=== PATIENT | female | born 1945 | race Caucasian/White ===

== ENCOUNTER → 2016-10-31 | Outpatient (CLI) | payer BC ==
[~2016-10-31] MED LIST: ALBUAER2 INH; ASPI81TA28 PO; ATV1 PO; CLR10 PO; COEN1CAP28 PO; ERGO1CAP35 PO; FELO5TAB PO; FLX10 PO; GLC500; INSU1INJ7 SC; LEVO175T3 PO; LOSA1TAB38 PO; MULT-506 PO; NVLGI SC; POLY150C4 PO; PRAV20TA PO; RXC5 PO
[2016-10-31 13:09] LABS: HEMATOCRIT 32.2 % (37-47); MEAN CELL VOLUME 86.3 fL (80-100); MEAN CORPUSCULAR HEMOGLOBIN 28.7 pg (25-34); MEAN CORPUSCULAR HGB CONC 33.2 g/dl (32-36); MEAN PLATELET VOLUME 10.6 fL (7.4-10.4); PLATELET COUNT 307 K/uL (130-400); RED BLOOD COUNT 3.73 M/uL (4.2-5.4)
[2016-10-31 13:24] LABS: BLOOD UREA NITROGEN 33 mg/dl (7-18); BUN/CREATININE RATIO 25.6 (10-20); CARBON DIOXIDE 20 mmol/L (21-32); CHLORIDE 106 mmol/L (98-107); GLUCOSE 161 mg/dl (70-99); PHOSPHORUS 3.2 mg/dl (2.5-4.9); POTASSIUM 4.7 mmol/L (3.5-5.1); SODIUM 137 mmol/L (136-145)
[2016-10-31 13:26] LABS: URINE APPEARANCE CLEAR (CLEAR); URINE BILIRUBIN NEG (NEG); URINE COLOR YELLOW; URINE EPITHELIAL CELL AUTO 0-5 /lpf (0-5); URINE NITRITE NEG (NEG); URINE SPECIFIC GRAVITY 1.008 (1.000-1.030); UROBILINOGEN NEG (NEG)
[2016-10-31 13:30] LABS: MANUAL MICROSCOPIC REQUIRED? NO; REVIEW REQ? NO
[2016-10-31 13:37] LABS: URINE PROTIEN/CREAT RATIO 0.2 (0-0.2); URINE TOTAL PROTEIN 6.6 mg/dl (0-11.9)
[2016-10-31 13:52] LABS: ESTIMATED AVERAGE GLUCOSE 154 mg/dl; HA1C FLAG Normal (Normal)
== END | disposition home or self-care (01) ==
LOC: C.LABMFLN 11:03
PROVIDERS: ATTEND Internal Medicine Nephrology
DX: I12.9 Hypertensive chronic kidney disease with stage 1 through stage 4 chronic kidney disease, or unspecified chronic kidney disease (principal); R80.9 Proteinuria, unspecified; N18.3 Chronic kidney disease, stage 3 (moderate); E55.9 Vitamin D deficiency, unspecified; E11.22 Type 2 diabetes mellitus with diabetic chronic kidney disease

== ENCOUNTER → 2017-05-08 | Outpatient (CLI) | payer BC ==
[2017-05-08 13:19] LABS: HEMATOCRIT 34.7 % (37-47); MEAN CELL VOLUME 90.6 fL (80-100); MEAN CORPUSCULAR HEMOGLOBIN 29.5 pg (25-34); MEAN CORPUSCULAR HGB CONC 32.6 g/dl (32-36); MEAN PLATELET VOLUME 10.8 fL (7.4-10.4); PLATELET COUNT 312 K/uL (130-400); RED BLOOD COUNT 3.83 M/uL (4.2-5.4); WHITE BLOOD COUNT 9.64 K/uL (4.8-10.8)
[2017-05-08 13:37] LABS: URINE APPEARANCE CLEAR (CLEAR); URINE BILIRUBIN NEG (NEG); URINE COLOR YELLOW; URINE EPITHELIAL CELL AUTO >30 /lpf (0-5); URINE NITRITE NEG (NEG); URINE SPECIFIC GRAVITY 1.023 (1.000-1.030); UROBILINOGEN NEG (NEG)
[2017-05-08 13:41] LABS: BLOOD UREA NITROGEN 28 mg/dl (7-18); BUN/CREATININE RATIO 23.2 (10-20); CALCIUM 9.7 mg/dl (8.5-10.1); CARBON DIOXIDE 27 mmol/L (21-32); CHLORIDE 108 mmol/L (98-107); GLUCOSE 140 mg/dl (70-99); PHOSPHORUS 3.5 mg/dl (2.5-4.9); POTASSIUM 4.8 mmol/L (3.5-5.1); SODIUM 140 mmol/L (136-145)
[2017-05-08 14:10] LABS: URINE PROTIEN/CREAT RATIO 0.1 (0-0.2); URINE TOTAL PROTEIN 14.4 mg/dl (0-11.9)
[2017-05-08 15:44] LABS: MANUAL MICROSCOPIC REQUIRED? NO; REVIEW REQ? NO
== END | disposition home or self-care (01) ==
LOC: C.LABMFLN 09:21
PROVIDERS: ATTEND Internal Medicine Nephrology
DX: I12.9 Hypertensive chronic kidney disease with stage 1 through stage 4 chronic kidney disease, or unspecified chronic kidney disease (principal); R80.9 Proteinuria, unspecified; N18.3 Chronic kidney disease, stage 3 (moderate); E55.9 Vitamin D deficiency, unspecified

== ENCOUNTER → 2017-05-15 | Outpatient (CLI) | payer BC ==
[2017-05-15 18:15] LABS: ALKALINE PHOSPHATASE 98 U/L (45-117); ALT/SGPT 44 U/L (12-78); AST/SGOT 30 U/L (15-37); CHOLESTEROL 146 mg/dl (0-200); CHOLESTEROL/HDL RATIO 2.6; HDL CHOLESTEROL 57 mg/dl; LDL CHOLESTEROL CALCULATED 61 mg/dl; TRIGLYCERIDES 140 mg/dl (0-150); VERY LOW DENSITY LIPOPROT CALC 28 mg/dl
[2017-05-15 18:49] LABS: ESTIMATED AVERAGE GLUCOSE 148 mg/dl; HA1C FLAG Normal (Normal)
== END | disposition home or self-care (01) ==
LOC: C.LABMFLN 11:47
PROVIDERS: ATTEND Family Medicine
DX: E78.5 Hyperlipidemia, unspecified (principal); E03.9 Hypothyroidism, unspecified; E11.9 Type 2 diabetes mellitus without complications

== ENCOUNTER → 2017-06-10 | Outpatient (CLI) | payer BC ==
--- NOTE | 2017-06-10 15:31 | MAMMOGRAPHY REPORT ---
BILATERAL DIGITAL SCREENING MAMMOGRAM WITH CAD: 06/10/2017 CLINICAL HISTORY: Routine screening. Patient has no complaints. TECHNIQUE: Bilateral CC, MLO and right XCCL views were obtained. Current study was also evaluated wi th a Computer Aided Detection (CAD) system. COMPARISON: Comparison is made to exams dated: 05/09/2016 mammogram - [facility] [place], mammogram, 05/20/2013 mammogram, 04/10/2012 mammogram, 08/24/2009 mammogram, and 07/28/2008 mamm ogram. BREAST COMPOSITION: There are scattered areas of fibroglandular density in both breasts. FINDINGS: There are mild vascular calcifications in the breasts. No suspicious mass, architectural d istortion or cluster of suspicious microcalcifications is seen. IMPRESSION: ACR BI-RADS CATEGORY 1: NEGATIVE There is no mammographic evidence of malignancy. A 1 year screening mammogram is recommended. The pa tient will receive written notification of the results. Approximately 10% of breast cancers are not detected with mammography. A negative mammographic report should not delay biopsy if a clinically suggestive mass is present. Juanis Ferrari M.D. ay/:06/10/2017 15:06:26 Plater Apprentice: Flora PACHECO(Catina)(Linda)(BD), [facility] letter sent: Normal 1/2 BI-RADS Code: ACR BI-RADS Category 1: Negative
== END | disposition home or self-care (01) ==
LOC: C.MAMM 11:44
PROVIDERS: ATTEND Family Medicine
DX: Z12.31 Encounter for screening mammogram for malignant neoplasm of breast (principal)

== ENCOUNTER → 2017-07-28 | Day surgery (SDC) | payer BC ==
[2017-07-21 10:09] VITALS: BMI 39.0
[~2017-07-28] VITALS: Ht 172.7 cm; Wt 115.5 kg
[~2017-07-28] MED LIST changes: -ALBUAER2 INH; +ATROPINE SULFATE 0.1 MG/ML 5ML SYR IV PRN; -ATV1 PO; +CYAN10005 PO; +CYCL10TA6 PO; -ERGO1CAP35 PO; +ERGO500011 PO; +EpHEDrine SULFATE INJ 50 MG/ML AMP IV PRN; +FELO10TA PO; -FELO5TAB PO; +FERR1TAB62 PO; -FLX10 PO; +GABA-112 PO; -GLC500; +INSDGI SC; +INSU100I SC; -INSU1INJ7 SC; +LIDOCAINE HCL 2% 2 ML VIAL (20MG/ML) ONE; +METF-384 PO; -NVLGI SC; -POLY150C4 PO; +PRAV10TA39 PO; -PRAV20TA PO; +PROPOFOL IV EMULSION 10 MG/ML 20 ML VIAL IV ONE; -RXC5 PO; +VNTHFA/IN INH
[2017-07-28 13:13] VITALS: Ht 172.7 cm; Wt 115.5 kg
--- NOTE | 2017-07-28 13:36 | Endo History and Physical ---
History & Physical Date of Service: Jul 28, 2017. Chief Complaint: hx polyps Referring Physician: Dr. Bender History of Present Illness For colonoscopy Past Medical History Diabetes, Arthritis, Asthma, Blood Dyscrasias, High Cholesterol, Hypertension, Thyroid Disease, Kidney Disease Past Surgical History Hx Cardiac Surgery: Yes (HEART CATH, NO STENTS) Hx Internal Defibrillator: No Hx Pacemaker: No Hx Abdominal Surgery: Yes (APPY) Hx of Implantable Prosthesis: No Hx Post-Op Nausea and Vomiting: No Hx Cancer Surgery: No Hx Thoracic Surgery: No Hx Orthopedic: Yes (LOW BACK SURGERY X2, CERVICAL DISC REPLACEMENT (FULL ROM), RT CTR) Hx Urinary Tract Surgery: Yes (BLADDER TACK AND VAGINAL SLING, LT/RT HAMMER TOE REPAIR) Family History Colon CA Social History Smoking Status: Never Smoker Hx Substance Use: No Hx Alcohol Use: No Allergies Coded Allergies: Cephalexin (Verified Allergy, Intermediate, RASH, 07/28/17) Latex1 -Allergic Contact Dermititis (Verified Allergy, Mild, RASH, ) Tetracycline (Verified Allergy, Mild, HIVES, 07/28/17) Clarithromycin (Verified Allergy, Unknown, RASH, 07/28/17) Penicillins (Verified Allergy, Unknown, HIVES, 07/28/17) NSAIDs (Verified Adverse Reaction, Unknown, Avoid secondary to CKD Stage III, 07/28/17) Especially Toradol per Dr Diaz Current Medications Reported Home Medications Medications Dose Route/Sig Max Daily Dose Days Date Category Dose Instructions Glucophage (Metformin Hcl) 1,000 Mg Tab 1,000 Mg PO BID 07/21/17 Reported Neurontin (Gabapentin) 100 Mg Cap 100 Mg PO TID PRN 07/21/17 Reported Humalog (Insulin Lispro (Human)) 100 Unit/Ml Inj 22 Units SC AC 07/21/17 Reported +PER SLIDING SCALE Lantus (Insulin Glargine) 100 Unit/Ml Inj 82 Units SC QPM 07/21/17 Reported Vitamin B-12 (Cyanocobalamin) 1,000 Mcg Tab 1,000 Mcg PO DAILY 07/21/17 Reported Vitamin D 40803 Unit (Ergocalciferol) 50,000 Unit Cap 1 Tab PO MONTHLY 07/21/17 Reported Ventolin Hfa (Albuterol) 200 Puffs/74738 Mcg Aers 2-4 Puffs INH Q6H PRN 07/21/17 Reported Ferrous Sulfate 325 Mg Tab 1 Tab PO DAILY 07/21/17 Reported Flexeril (Cyclobenzaprine Hcl) 10 Mg Tab 10 Mg PO TID PRN 07/21/17 Reported Pravastatin Sodium 10 Mg Tab 1 Tab PO HS 07/21/17 Reported Plendil Er (Felodipine) 10 Mg Tab 10 Mg PO QAM 07/21/17 Reported Multivitamin (Multivitamins) Tab 1 Tab PO DAILY 11/20/15 Reported Levothyroxine Sodium 175 Mcg Tab 1 Tab PO QAM 11/20/15 Reported Co Q10 (Coenzyme Q10) 50 Mg Cap 2 Cap PO QAM 11/20/15 Reported Aspirin Ec (Aspirin) 81 Mg Tab 81 Mg PO HS 11/20/15 Reported Cozaar (Losartan Potassium) 100 Mg Tab 100 Mg PO QAM 01/15/12 Reported Claritin (Loratadine) 10 Mg Tab 10 Mg PO QAM 09/05/06 Reported Vital Signs Weight (Kilograms): 115.45 Height (Feet): 5 Height (Inches): 8 Date Time Temp Pulse Resp B/P (MAP) Pulse Ox O2 Delivery O2 Flow Rate FiO2 07/28/17 13:20 36.5 100 20 183/78 (113) 97 Room Air Physical Exam General Appearance: + obese Respiratory/Chest: Respiratory effort: no dyspnea Cardiovascular: Heart Auscultation: RRR Abdomen: Inspection & Palpation: soft Assessment and Plan Hx of polyps for colonoscopy
--- NOTE | 2017-07-28 13:58 | Discharge Instructions ---
Endoscopy Patient Instructions Date / Procedure(s) Performed Jul 28, 2017. Colonoscopy Allergy Information Coded Allergies: Cephalexin (Verified Allergy, Intermediate, RASH, 07/28/17) Latex1 -Allergic Contact Dermititis (Verified Allergy, Mild, RASH, ) Tetracycline (Verified Allergy, Mild, HIVES, 07/28/17) Clarithromycin (Verified Allergy, Unknown, RASH, 07/28/17) Penicillins (Verified Allergy, Unknown, HIVES, 07/28/17) NSAIDs (Verified Adverse Reaction, Unknown, Avoid secondary to CKD Stage III, 07/28/17) Especially Toradol per Dr Diaz Discharge Date / Findings Jul 28, 2017. Normal colon Medication Instructions Stopped Medication(s): stopped everything except BP and thyroid pill. Restart Stopped Medication(s): resume meds Reported Home Medications Medications Dose Route/Sig Max Daily Dose Days Date Category Dose Instructions Glucophage (Metformin Hcl) 1,000 Mg Tab 1,000 Mg PO BID 07/21/17 Reported Neurontin (Gabapentin) 100 Mg Cap 100 Mg PO TID PRN 07/21/17 Reported Humalog (Insulin Lispro (Human)) 100 Unit/Ml Inj 22 Units SC AC 07/21/17 Reported +PER SLIDING SCALE Lantus (Insulin Glargine) 100 Unit/Ml Inj 82 Units SC QPM 07/21/17 Reported Vitamin B-12 (Cyanocobalamin) 1,000 Mcg Tab 1,000 Mcg PO DAILY 07/21/17 Reported Vitamin D 34407 Unit (Ergocalciferol) 50,000 Unit Cap 1 Tab PO MONTHLY 07/21/17 Reported Ventolin Hfa (Albuterol) 200 Puffs/06795 Mcg Aers 2-4 Puffs INH Q6H PRN 07/21/17 Reported Ferrous Sulfate 325 Mg Tab 1 Tab PO DAILY 07/21/17 Reported Flexeril (Cyclobenzaprine Hcl) 10 Mg Tab 10 Mg PO TID PRN 07/21/17 Reported Pravastatin Sodium 10 Mg Tab 1 Tab PO HS 07/21/17 Reported Plendil Er (Felodipine) 10 Mg Tab 10 Mg PO QAM 07/21/17 Reported Multivitamin (Multivitamins) Tab 1 Tab PO DAILY 11/20/15 Reported Levothyroxine Sodium 175 Mcg Tab 1 Tab PO QAM 11/20/15 Reported Co Q10 (Coenzyme Q10) 50 Mg Cap 2 Cap PO QAM 11/20/15 Reported Aspirin Ec (Aspirin) 81 Mg Tab 81 Mg PO HS 11/20/15 Reported Cozaar (Losartan Potassium) 100 Mg Tab 100 Mg PO QAM 01/15/12 Reported Claritin (Loratadine) 10 Mg Tab 10 Mg PO QAM 09/05/06 Reported Provider Instructions Activity Restrictions - No exercising or heavy lifting for 24 hours. - Do not drink alcohol the day of the procedure. - Do not drive a car or operate machinery until the day after the procedure. - Do not make any important decisions or sign important papers in 24 hours after the procedure. Following Day: - Return to full activity which may include returning to work/school. Diet Start your diet with liquids and light foods (jello, soup, juice, toast). Then eat your usual diet if not nauseated. Treatment For Common After Affects For mild abdominal pain, bloating, or excessive gas: - Rest - Eat lightly - Lie on right side Follow-Up Information Follow-up with Dr. Bender as scheduled Anesthesia Information What You Should Know You have had a procedure that required some medicine to reduce anxiety and discomfort. This treatment is called moderate sedation. After receiving the treatment, you may be sleepy, but you will be able to breathe on your own. The effects of the treatment may last for several hours. Follow these instructions along with Activity/Diet recommendations noted above: * Do NOT do anything where dizziness or clumsiness would be dangerous. * Rest quietly at home today, then you can be up and about tomorrow. * Have a responsible person stay with you the rest of today. * You may have had an I.V. today. If so, you may take the dressing off later today. Recommendations Call your doctor if: * Trouble breathing * Continuous vomiting for more than 24 hours * Temperature above 101 degrees * Severe abdominal pain or bloating * Pain not relieved by pain medicine ordered * There is increased drainage or redness from any incision * A large amount of rectal bleeding greater than 2-3 tablespoons. (If you had a polyp/s removed or have hemorrhoids, a small amount of blood - from the rectum is to be expected.) * You have any unanswered questions or concerns. IN THE EVENT OF A SERIOUS EMERGENCY, GO TO THE NEAREST EMERGENCY ROOM Your discharge instructions were prepared by provider Ranjit Apple. Patient Instructions Signature Page Arely Jaquez Patient (or Guardian) Signature/Date: I have read and understand the instructions given to me by my caregivers. Caregiver/RN/Doctor Signature/Date: The above-named patient and/or guardian has received patient instructions on this date. + Original Patient Signature Page (only) stays with chart. Please make copy for patient.
--- NOTE | 2017-07-28 14:00 | GI REPORT ---
Procedure Date: 07/28/2017 1:37 PM Procedure: Colonoscopy Indications: Personal history of colonic polyps Medicines: Propofol total dose 200 mg IV, Lidocaine 40 mg IV Complications: No immediate complications. Estimated Blood Loss: Estimated blood loss: none. Procedure: Pre-Anesthesia Assessment: - Prior to the procedure, a History and Physical was performed, and patient medications, allergies and sensitivities were reviewed. The patient's tolerance of previous anesthesia was reviewed. - The risks and benefits of the procedure and the sedation options and risks were discussed with the patient. All questions were answered and informed consent was obtained. After I obtained informed consent, the scope was passed under direct vision. Throughout the procedure, the patient's blood pressure, pulse, and oxygen saturations were monitored continuously. The scope was introduced through the anus and advanced to the cecum, identified by appendiceal orifice and ileocecal valve. The colonoscopy was performed without difficulty. The patient tolerated the procedure well. The quality of the bowel preparation was excellent. Findings: The entire examined colon appeared normal. Impression: - The entire examined colon is normal. - No specimens collected. Recommendation: - Discharge patient to home (ambulatory). - Continue present medications. - Repeat colonoscopy in 5 years for surveillance. - Return to primary care physician [place]. Ranjit Apple M.D. Ranjit Apple MD 07/28/2017 2:00:11 PM This report has been signed electronically. Note Initiated On: 07/28/2017 1:37 PM I attest to the content of the Intraoperative Record and orders documented therein, exceptions below
--- NOTE | 2017-07-28 14:07 | Anesthesiology Progress Note ---
Anesthesia Post Op Note Date & Time Jul 28, 2017 at 14:07 Vital Signs Pain Intensity: 0 Vital Signs Past 12 Hours Date Time Temp Pulse Resp B/P (MAP) Pulse Ox O2 Delivery O2 Flow Rate FiO2 07/28/17 14:01 82 16 137/63 (87) 94 Room Air 07/28/17 13:20 36.5 100 20 183/78 (113) 97 Room Air Notes Mental Status: alert / awake / arousable, participated in evaluation Pt Amnestic to Procedure: Yes Nausea / Vomiting: adequately controlled Pain: adequately controlled Airway Patency, RR, SpO2: stable & adequate BP & HR: stable & adequate Hydration State: stable & adequate Anesthetic Complications: no major complications apparent
[2017-07-28 14:30] VITALS: BP 154/73; PULSE 78; O2SAT 95
== END | disposition home or self-care (01) ==
LOC: C.GI 12:49
PROVIDERS: ATTEND Internal Medicine Gastroenterology
DX: Z86.010 Personal history of colon polyps (principal); Z80.0 Family history of malignant neoplasm of digestive organs; E78.5 Hyperlipidemia, unspecified; E03.9 Hypothyroidism, unspecified; E11.9 Type 2 diabetes mellitus without complications; Z79.4 Long term (current) use of insulin; N28.9 Disorder of kidney and ureter, unspecified; Z79.899 Other long term (current) drug therapy

== ENCOUNTER → 2017-11-14 | Outpatient (CLI) | payer BC ==
[~2017-11-14] MED LIST changes: -ATROPINE SULFATE 0.1 MG/ML 5ML SYR IV PRN; -EpHEDrine SULFATE INJ 50 MG/ML AMP IV PRN; -LIDOCAINE HCL 2% 2 ML VIAL (20MG/ML) ONE; -PROPOFOL IV EMULSION 10 MG/ML 20 ML VIAL IV ONE
[2017-11-14 12:50] LABS: HEMATOCRIT 34.2 % (37-47); HEMOGLOBIN 11.2 g/dL (12.0-16.0); MEAN CELL VOLUME 90.2 fL (80-100); MEAN CORPUSCULAR HEMOGLOBIN 29.6 pg (25-34); MEAN CORPUSCULAR HGB CONC 32.7 g/dl (32-36); MEAN PLATELET VOLUME 11.4 fL (7.4-10.4); PLATELET COUNT 300 K/uL (130-400); RED CELL DISTRIBUTION WIDTH CV 13.8 % (11.5-14.5); RED CELL DISTRIBUTION WIDTH SD 45.7 fL (36.4-46.3); WHITE BLOOD COUNT 11.06 K/uL (4.8-10.8)
[2017-11-14 12:57] LABS: ALBUMIN 3.6 gm/dl (3.4-5.0); BLOOD UREA NITROGEN 35 mg/dl (7-18); CALCIUM 9.5 mg/dl (8.5-10.1); CARBON DIOXIDE 22 mmol/L (21-32); CREATININE 1.17 mg/dl (0.60-1.20); GLUCOSE 81 mg/dl (70-99); POTASSIUM 4.3 mmol/L (3.5-5.1); SODIUM 138 mmol/L (136-145)
[2017-11-14 12:58] LABS: HEMOGLOBIN A1C 6.9 % (4.5-5.6); PHOSPHORUS 3.7 mg/dl (2.5-4.9)
== END | disposition home or self-care (01) ==
LOC: C.LABMFLN 08:45
PROVIDERS: ATTEND Internal Medicine Nephrology
DX: E11.9 Type 2 diabetes mellitus without complications (principal); I10 Essential (primary) hypertension; R80.9 Proteinuria, unspecified; N18.3 Chronic kidney disease, stage 3 (moderate); E55.9 Vitamin D deficiency, unspecified

== ENCOUNTER 2024-01-13 06:51 | Observation (INO) ==
--- NOTE | 2024-01-12 09:03 | Anesthesiology Consultation ---
Date of Service January 12, 2024 Assessment & Plan (1) Encounter for pre-operative examination: - Infectious disease screening: Per assessment on 01/08/24: No known infectious disease contacts or current infectious disease symptoms. No noted recent Covid positive test result. - PCP visit (11/06/23): "Umbilical hernia.. Will place referral for general surgery.. CKD (chronic kidney disease), stage III.. Avoid nephrotoxic medications.. Hypertension.. Well controlled.. Continue medication as prescribed.. Statin myopathy.. Unable to tolerate statin therapy.. Dermatitis.. 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 Use hydrocortisone cream BID to rash." 6 month f/u recommended. - Check BSG AM DOS - Preop testing: Most recent potassium borderline elevated at 5.2 on 01/09/24 labs. Will update potassium level DOS. Chart Review Chart Review: Acceptable Risk for Surgery and Patient NOT seen in Pre Admission Testing History Surgery Operation Date: 01/13/24 08:40 Proposed Procedures p Oepn Incarcerated Umbilical Hernia Repair, Possible Mesh - Yovany Mishra DO Height/Weight Height: 5 ft 7 in Weight: 110.223 kg Allergies Allergy/AdvReac Type Severity Reaction Status Date / Time adhesive Allergy Intermediate Redness Verified 01/12/24 08:53 cephalexin Allergy Intermediate Rash Verified 01/12/24 08:53 clarithromycin Allergy Intermediate Rash Verified 01/12/24 08:53 Penicillins Allergy Intermediate Hives Verified 01/12/24 08:53 tetracycline Allergy Intermediate Hives Verified 01/12/24 08:53 latex Allergy Mild Rash Verified 01/12/24 08:53 levofloxacin Allergy Unknown Unknown Verified 01/12/24 08:53 Tetracyclines Allergy Unknown Unknown Verified 01/12/24 08:53 oxycodone AdvReac Intermediate "Spaced Verified 01/12/24 08:53 out" [id number] Reductase AdvReac Intermediate Muscle Pain Verified 01/08/24 09:38 Inhibitor [[id number]-[id number] Reductase Inhibitor] NSAIDS (Non-Steroidal AdvReac Mild Avoid Verified 01/08/24 09:38 Anti-Inflamma secondary to CKD Stage III Medications Home Medications Medication Instructions Recorded Confirmed Last Taken coenzyme Q10 100 mg capsule 100 mg PO QAM 06/23/18 01/08/24 11/25/22 (CoQ-10) cyanocobalamin (vitamin B-12) 1,000 mcg PO QAM 06/23/18 01/08/24 11/25/22 1,000 mcg tablet (Vitamin B-12) aspirin 81 mg tablet 81 mg PO HS 02/16/19 01/08/24 11/22/22 multivitamin 1 tab PO QPM #90 tabs 02/22/19 01/08/24 11/25/22 diabetic shoes #1 ea 04/12/20 12/15/23 Unknown latanoprost 0.005 % eye drops 1 drp ophthalmic (eye) DAILY #2.5 03/22/22 01/08/24 11/25/22 mL iron polysacch cplx 150 mg 1 cap PO QAM 11/22/22 01/08/24 11/25/22 iron-vit B12 25 mcg-folic acid 1 mg capsule (Ferrex) loratadine 10 mg tablet 10 mg PO QAM 11/22/22 01/08/24 11/25/22 vitamin B complex (B 1 tab PO QAM 11/22/22 01/08/24 11/25/22 Complex-Vitamin B12 tablet) felodipine 10 mg tablet,extended 10 mg PO QAM #90 tabs 12/24/22 01/08/24 Unknown release 24 hr insulin aspart U-100 100 unit/mL 25 unit (0.25 mL) subcut TID #70 mL 02/18/23 01/08/24 Unknown subcutaneous solution (Novolog U-100 Insulin aspart) blood sugar diagnostic #400 ea 03/05/23 12/15/23 Unknown Wheeled Walker #1 ea 04/04/23 12/15/23 Unknown losartan 100 mg tablet 100 mg PO QAM #90 tabs 06/09/23 01/08/24 Unknown flash glucose scanning reader #1 ea 07/16/23 12/15/23 Unknown (FreeStyle Bernabe 2 [place]) flash glucose sensor (FreeStyle #1 ea 07/16/23 12/15/23 Unknown Bernabe 2 Sensor kit) ergocalciferol (vitamin D2) 1,250 50,000 unit PO MONTHLY #3 caps 09/03/23 01/08/24 Unknown mcg (50,000 unit) capsule (Vitamin D2) duloxetine 60 mg capsule,delayed 60 mg PO QAM #90 caps 09/09/23 01/08/24 Unknown release levothyroxine 137 mcg tablet 137 mcg PO QAM #90 tabs 10/08/23 01/08/24 Unknown (Synthroid) insulin glargine 100 unit/mL (3 84 unit (0.84 mL) subcut QPM #45 mL 01/05/24 01/08/24 Unknown mL) subcutaneous pen (Lantus Solostar U-100 Insulin) Past Medical History Medical History Allergic rhinitis Anemia Asthma CKD (chronic kidney disease), stage III Diabetic peripheral neuropathy Foot drop, left Glaucoma History of CHF (congestive heart failure) Hx of colonic polyp Hyperlipidemia Hypertension Hypothyroidism Incarcerated umbilical hernia Insulin dependent diabetes mellitus Lumbar disc disease Osteoarthritis Proteinuria Stenosis, cervical spine Past Family History Family History Sister Colorectal cancer Brother Diabetes mellitus, type 2 Sister Diabetes mellitus, type 2 Mother Diabetes mellitus, type 2 Aunt Breast cancer Father Coronary heart disease Myocardial infarction Other No family history of adverse response to anesthesia Denies family history of Ovarian cancer Prostate cancer Past Surgical History Surgical History History of appendectomy History of back surgery x3 (with fusion) History of bladder surgery Bladder tack, vaginal sling History of carpal tunnel release Right History of esophagogastroduodenoscopy (EGD) History of open reduction and internal fixation (ORIF) procedure Left wrist History of postoperative nausea and vomiting x1 History of tonsillectomy History of tooth extraction History of total knee replacement Left Hx of bilateral cataract extraction Hx of cervical discectomy ROM limitations Hx of colonoscopy with polypectomy Hx of hammer toe correction R/L Hx of nasal polypectomy S/P cardiac cath ~2003- no stents Social History Smoking Status: Never smoker Do You Dip or Chew Tobacco: No Hx Alcohol Use: No Hx Substance Use: No substance use type: does not use Lab Results Anesthesia Preop Results Results Anesthesia Widget: WBC 10.83 K/ul (4.8-10.8) H 01/09/24 Hgb 10.9 g/dl (12.0-16.0) L 01/09/24 Hct 35.3 % (37.0-47.0) L 01/09/24 Plt 346 K/uL (130-400) 01/09/24 Na 139 mmol/L (136-145) 01/09/24 K 5.2 mmol/L (3.5-5.1) H 01/09/24 Cl 107 mmol/L (98-107) 01/09/24 CO2 24 mmol/L (21-32) 01/09/24 BUN 27 mg/dl (6-23) H 01/09/24 Creat 1.24 mg/dl (0.6-1.2) H 01/09/24 Glucose Level 112 mg/dl (70-99(Fasting)) H 01/09/24 Testing Laboratory Results Chronic anemia stable* Electrocardiogram Date: 12/15/23 SR at 80bpm. "Normal ECG" Echocardiogram Date: 08/11/18 EF 65-70%. No RWMA. Mild cLVH. No significant valvular disease. Mild to moderate pulmonary HTN. Estimated RVSP 45-53mmhg.
[2024-01-13] MEDS ORDERED: MIDAZOLAM HCL 1 MG/ML 2ML VIAL ONE (07:29)
[2024-01-13] MEDS ORDERED: fentaNYL citrate PF 100 MCG/2 ML VIAL ONE (07:30)
[2024-01-13] MEDS: DEXTROSE 50% 50 ML SYRINGE IV ONE (07:49)
[2024-01-13] MEDS: LR 15ML/HR IV SCH (07:50)
--- NOTE | 2024-01-13 07:53 | History & Physical Bridge Note ---
Date of Service January 13, 2024 History & Physical Bridge Note I have examined the patient, reviewed the History & Physical and in the interval since the performance of the History & Physical I have noted the following changes of clinical significance: no changes noted
[2024-01-13] MEDS ORDERED: ePHEDrine sulfate 50 MG/ML AMP IV PRN (07:54)
[2024-01-13] MEDS ORDERED: PROMETHAZINE HCL 6.25 MG in SODIUM CHLORIDE 0.9% 50 ML IV PRN (07:54)
[2024-01-13] MEDS ORDERED: ATROPINE SULFATE 0.1 MG/ML 10ML SYR IV PRN (07:54)
[2024-01-13] MEDS: LACTATED RINGER'S 1,000 ML IV SCH ×2 (07:54→22:49)
[2024-01-13] MEDS ORDERED: HYDROmorphone INJ 2 MG/ML SYR/VIAL IV PRN (07:54)
[2024-01-13] MEDS ORDERED: PROPOFOL IV EMULSION 10 MG/ML 20 ML VIAL IV ONE (08:05)
[2024-01-13] MEDS ORDERED: ONDANSETRON INJ 2 MG/ML 2 ML VIAL ONE (08:05)
[2024-01-13] MEDS ORDERED: ROCURONIUM BROMIDE 10 MG/ML 5 ML VIAL IV ONE (08:05)
[2024-01-13] MEDS ORDERED: LIDOCAINE 2% 2 ML VIAL/AMP(20MG/ML) INFIL ONE (08:05)
[2024-01-13] MEDS: CLINDA 900 MG **Premixed Bag IV SCH (08:14)
[2024-01-13] MEDS ORDERED: DEXAMETHASONE SOD INJ 4 MG/ML VIAL ONE ×2 (08:29)
[2024-01-13] MEDS ORDERED: DROPERIDOL 5 MG/2 ML VIAL ONE (08:30)
[2024-01-13] MEDS ORDERED: ePHEDrine sulfate 50 MG/5 ML SYR ONE (08:39)
[2024-01-13] MEDS ORDERED: MoRPHine SULFATE 2 MG/ML CARP IV PRN (08:55)
[2024-01-13] MEDS ORDERED: MoRPHine SULFATE 4 MG/ML 1 ML CARP\\VIAL IV PRN (08:55)
[2024-01-13] MEDS ORDERED: ONDANSETRON INJ 2 MG/ML 2 ML VIAL IV PRN (08:55)
[2024-01-13] MEDS ORDERED: SUGAMMADEX SODIUM 200 MG/2 ML VIAL IV ONE (09:12)
[2024-01-13] MEDS: BUPIVACAINE/EPINEPHRINE 0.25% 1:200,000 30 ML VIAL ONE (09:17)
[2024-01-13] MEDS ORDERED: traMADol HCL 50 MG TABLET PO PRN (09:23)
--- NOTE | 2024-01-13 09:27 | Post Operative Brief Note ---
PG Immediate Post Op with CF Date of Surgery January 13, 2024 Pre & Post Diagnosis Operation Date: 01/13/24 08:40 Pre-Op Diagnosis: Incarcerated Umbilical Hernia Post-Op Diagnosis: Incarcerated Umbilical Hernia containing omentum I identified the patient and participated in the time-out.: Yes Procedure Operation Date: 01/13/24 08:40 Actual Procedures p Open Incarcerated Umbilical Hernia Repair with Mesh, partial omentectomy(Not Applicable) - Yovany Mishra DO Surgeon Yovany Mishra DO Director Of Hospitality Janine Wood PA-C Estimated Blood Loss 5 Findings See Below 3.2cm umbilical hernia with incarcerated omentum Specimens Specimen Description: A. Hernia Sac and Contents Anesthesia Type General Complications none Disposition Disposition: Recovery Room
--- NOTE | 2024-01-13 09:34 | Operative Report ---
PG Post Operative Report Pre & Post Diagnosis Operation Date: 01/13/24 08:40 Pre-Op Diagnosis: Incarcerated Umbilical Hernia Post-Op Diagnosis: Incarcerated Umbilical Hernia containing omentum I identified the patient and participated in the time-out.: Yes Procedure Operation Date: 01/13/24 08:40 Actual Procedures p Open Incarcerated Umbilical Hernia Repair with Mesh, partial omentectomy (Not Applicable) - Yovany Mishra DO Surgeon Yovany Mishra DO Marketing Professor Janine Wood PA-C Estimated Blood Loss 5 Findings See Below 3.2cm incarcerated umbilical hernia containing omentum Specimens Hernia sac and contents to pathology Drains None Anesthesia Type General Complications none Disposition Disposition: Recovery Room Indications 78 yo female with incarcerated umbilical hernia Description of Procedure The patient was brought to the OR and placed in the supine position with both arms abducted. At this time she underwent general endotracheal anesthesia without any problems. She was given appropriate pre-operative antibiotics. His abdomen was prepped and draped in the usual sterile fashion. Timeout was called. The procedure was verified as Open umbilical hernia repair, possible mesh. Surgical, anesthesia and nursing teams agreed and the procedure was begun. After injection of 0.25% Marcaine with epinephrine, a infraumbilical curvilinear incision was made using a #15 blade scalpel. This was carried down to the fascia using electrocautery. The umbilical stalk was then encircled using a Sarah clamp. The hernia sac was then dissected off of the umbilical skin using blunt and sharp dissection. The hernia sac was entered due to being unable to reduce the contents. This contained viable omentum. The hernia sac was removed. The incarcerated omentum was resected using the Ligasure device and passed off as specimen. I was able to then reduce the remaining contents with ease. At this point the defect was apparent and measured 3.2cm. A circular Ventralex mesh was then placed in an underlay fashion and sutured the fascia using simple interrupted 2-0 PDS. The defect overlying the mesh was then closed using a running 0-PDS suture. The wound was then irrigated until clear. Hemostasis was achieved using electrocautery. Hemostasis was complete. The umbilicus was then tacked down to the fascia using 3-0 Vicryl. 3-0 Vicryl was used to close the deep dermal layer and 4-0 Monocryl was used to close the skin in a running subcuticular fashion. Sterile dressing was applied. All needle and sponge counts were correct x 2. At this point the patient was awakened from anesthesia, extubated and transported to PACU in stable condition. The physician executive assistant was present and scrubbed for the entire case. She was essential in positioning, prepping and draping the patient, retraction and exposure, closure of the incision and placement of the dressing. I attest to the content of the Intraoperative Record and any orders documented therein. Any exceptions are noted below.
[2024-01-13] MEDS: traMADol HCL 50 MG TABLET PO PRN (10:49)
--- NOTE | 2024-01-13 10:52 | Anesthesiology Progress Note ---
Date of Service January 13, 2024 Anesthesia Post Procedure Vital Signs Vital Signs: Temp Pulse Pulse Resp BP Pulse Ox O2 Del Method 01/13/24 10:12 36.5 C 74 16 165/64 H 92 Nasal Cannula 01/13/24 10:05 36.3 C L 77 12 145/76 H 93 Nasal Cannula 01/13/24 09:55 74 12 157/63 H 93 Oxymask 01/13/24 09:45 73 12 159/95 H 94 Oxymask 01/13/24 09:35 36.1 C L 71 20 158/57 H 93 Oxymask 01/13/24 07:28 36.6 C 90 22 162/64 H 93 Room Air O2 Flow Rate 01/13/24 10:12 2 01/13/24 10:05 2 01/13/24 09:55 6 01/13/24 09:45 8 01/13/24 09:35 10 01/13/24 07:28 Transfer of Care Handoff Completed per policy Notes Mental Status: alert / awake / arousable and participated in evaluation Nausea / Vomiting: adequately controlled Pain: adequately controlled Airway Patency, RR, SpO2: stable & adequate BP & HR: stable & adequate Hydration State: stable & adequate Anesthetic Complications: no major complications apparent and Pt Satisfied with anesthetic care
[2024-01-13] MEDS: ALBUT/IPRATROP 3MG/0.5MG NEB 3 ML VIAL NEB STA (12:06)
--- NOTE | 2024-01-13 13:24 | XRay Report ---
XR chest 1V portable CLINICAL HISTORY: Pt with low post-op O2 sat COMPARISON STUDY: Chest radiograph August 09, 2018. Chest CT August 10, 2018. FINDINGS: Postoperative findings within the spine are incidentally noted. There is no pneumothorax or pleural effusion. There is cardiomegaly without evidence for pulmonary edema. Possible opacity withi n the medial right lung base. Left lung is clear. IMPRESSION: 1. Possible opacity within the medial right lung base. This could reflect atelectasis or a small foc us of pneumonia. 2. Cardiomegaly without evidence for pulmonary edema. ACT 112: Negative or not required by law. Electronically signed by: Dusty Paulino M.D. 01/13/2024 1:21 PM
--- NOTE | 2024-01-13 14:50 | Hospitalist Consultation ---
Date of Consultation January 13, 2024 Assessment & Plan (1) Incarcerated umbilical hernia: S/p open incarcerated umbilical hernia repair on 01/[address] Mishra Perioperative antibiotics, pain control, fluids, and DVT PPx per the primary team (2) Hypoxia: Patient had difficulty maintaining her SpO2 levels following anesthesia, and hospital medicine was consulted for low O2 saturation on RA CXR postop revealed opacity in the medial right lung base which could reflect atelectasis or small focus of pneumonia; likely atelectasis Patient does not use supplemental oxygen at home or CPAP at night On RA, she drops to around 90% SpO2 Clinically, denies pleuritic CP, SOB, or lightheadedness This may be a prolonged hypoxia following anesthesia; will continue to monitor Continuous pulse oximetry Titrate pulse ox as needed to maintain SpO2 >94% (3) Diabetes mellitus: Pharmacy glycemic consult in place Pharmacy reached out regarding elevated glucose levels at 398mg/dL Will obtain BMP to check potassium prior to giving regular insulin Added on a.m. CBC, BMP; we will follow (4) ANTWON (acute kidney injury): BUN 47, creatinine 1.84 (baseline 1.24), EGFR 26.2 Avoid nephrotoxic agents for possible Hold a.m. losartan (5) Hyperkalemia: Elevated K 6.3 on repeat BMP; unclear etiology (K 4.7 on arrival), ?secondary to anesthesia Calcium gluconate 1000 mg IV ordered Spoke to pharmacy who will give regular insulin 5u Trend BMP q4h x 2 EKG ordered, pending Patient will require transfer to telemetry unit (6) Hyperlipidemia: (7) Hypertension: (8) CHF (congestive heart failure): (9) Asthma: Plan Agree with current medical management. Will continue to monitor patient's SpO2. Thank you for allowing us to participate in the care of this patient; please reach out with any questions or concerns. We will continue to follow. Supervising Physician Co-Signing Physician Notes I personally saw and examined the patient. I independently reviewed the labs, EKG, imaging, problem list, medication list, past medical history and family history. I verified all thompson points and agree with Roddy Miller PA-C with the following exceptions and/or additions: 78 year old female post op hypoxia POD#0 s/p Open Incarcerated Umbilical Hernia Repair with Mesh. No shortness of breath. Notes baseline daytime sleepiness. O/E HS RRR, no murmurs, Chest CTAB, Abdo generalized tenderness A/P Post operative hypoxia - suspect she has undiagnosed obstructive sleep apnea +/- obesity hypoventilation, declines CPAP overnight. Continue incentive spirometry. Hyperkalemia with elevated Cr - suspect from worse renal function with taking her losartan this morning, hold losartan, insulin IV overnight, consider Lokelma is ongoing History of Present Illness Reason for Consultation: Medical Management Requesting Physician: Yovany Mishra DO Attending Physician: Yovany Mishra DO History of Present Illness Arely is a 78-year-old female with PMH of CHF, asthma, hypothyroidism, CKD stage III, HLD, HTN, diabetes mellitus, and B12/folate deficiency. She presented for an open incarcerated umbilical hernia repair with mesh with Dr. Yovany Mishra on 01/13/2024. Per review of operative note, EBL was listed as 5 cc, general anesthesia was used, and there were no reported intraoperative complications. Per review of patient vitals, she has been mildly hypertensive postop, and her oxygen saturations have been dropping to around 90% SpO2 on RA. Patient reports 3/10 dull, constant umbilical pain at time of consult. No radiation. She reports her pain is well-managed with current pain regimen. She has no new complaints at this time. Patient does not feel short of breath or lightheaded. No supplemental oxygen use at home. She has never had a CPAP before. She has been eating and drinking well since her surgery. She also reports she has been up to use the bathroom without difficulty. She denies smoking or tobacco use. No personal history of COPD. She only took her losartan, duloxetine, and levothyroxine this morning (as instructed). ROS: Patient endorses mild abdominal pain around the umbilicus, and sore throat. Patient denies fever, chills, sweating, dizziness, lightheadedness, changes in vision, headache, chest pain, chest palpitations, pleuritic CP, cough, SOB, N/V/D, changes in urinary or bowel habits, or numbness/tingling in the arms or legs. Allergies Allergy/AdvReac Type Severity Reaction Status Date / Time adhesive Allergy Intermediate Redness Verified 01/13/24 07:08 cephalexin Allergy Intermediate Rash Verified 01/13/24 07:08 clarithromycin Allergy Intermediate Rash Verified 01/13/24 07:08 Penicillins Allergy Intermediate Hives Verified 01/13/24 07:08 tetracycline Allergy Intermediate Hives Verified 01/13/24 07:08 latex Allergy Mild Rash Verified 01/13/24 07:08 levofloxacin Allergy Unknown Unknown Verified 01/13/24 07:08 Tetracyclines Allergy Unknown Unknown Verified 01/13/24 07:08 oxycodone AdvReac Intermediate "Spaced Verified 01/13/24 07:08 out" Jkgeraq-WUX-MwO Reductase AdvReac Intermediate Muscle Pain Verified 01/13/24 07:08 Inhibitor [Plfxgkv-Qde-Lrc Reductase Inhibitor] NSAIDS (Non-Steroidal AdvReac Mild Avoid Verified 01/13/24 07:08 Anti-Inflamma secondary to CKD Stage III Home Medications Medication Instructions Recorded Confirmed Type coenzyme Q10 100 mg capsule 100 mg PO QAM 06/23/18 01/13/24 History (CoQ-10) cyanocobalamin (vitamin B-12) 1,000 mcg PO QAM 06/23/18 01/13/24 History 1,000 mcg tablet (Vitamin B-12) aspirin 81 mg tablet 81 mg PO HS 02/16/19 01/13/24 History multivitamin 1 tab PO QPM #90 tabs 02/22/19 01/13/24 Rx diabetic shoes #1 ea 04/12/20 12/15/23 Rx latanoprost 0.005 % eye drops 1 drp ophthalmic (eye) DAILY #2.5 03/22/22 01/13/24 Rx mL iron polysacch cplx 150 mg 1 cap PO QAM 11/22/22 01/13/24 History iron-vit B12 25 mcg-folic acid 1 mg capsule (Ferrex) loratadine 10 mg tablet 10 mg PO QAM 11/22/22 01/13/24 History vitamin B complex (B 1 tab PO QAM 11/22/22 01/13/24 History Complex-Vitamin B12 tablet) felodipine 10 mg tablet,extended 10 mg PO QAM #90 tabs 12/24/22 01/13/24 Rx release 24 hr insulin aspart U-100 100 unit/mL 25 unit (0.25 mL) subcut TID #70 mL 02/18/23 01/13/24 Rx subcutaneous solution (Novolog U-100 Insulin aspart) blood sugar diagnostic #400 ea 03/05/23 12/15/23 Rx Wheeled Walker #1 ea 04/04/23 12/15/23 Rx losartan 100 mg tablet 100 mg PO QAM #90 tabs 06/09/23 01/13/24 Rx flash glucose scanning reader #1 ea 07/16/23 12/15/23 Rx (FreeStyle Bernabe 2 [place]) flash glucose sensor (FreeStyle #1 ea 07/16/23 12/15/23 Rx Bernabe 2 Sensor kit) ergocalciferol (vitamin D2) 1,250 50,000 unit PO MONTHLY #3 caps 09/03/23 01/13/24 Rx mcg (50,000 unit) capsule (Vitamin D2) duloxetine 60 mg capsule,delayed 60 mg PO QAM #90 caps 09/09/23 01/13/24 Rx release levothyroxine 137 mcg tablet 137 mcg PO QAM #90 tabs 10/08/23 01/13/24 Rx (Synthroid) insulin glargine 100 unit/mL (3 84 unit (0.84 mL) subcut QPM #45 mL 01/05/24 01/13/24 Rx mL) subcutaneous pen (Lantus Solostar U-100 Insulin) tramadol 50 mg tablet 50 mg PO Q6H #14 tabs 01/13/24 Rx Patient History Medical History Allergic rhinitis Anemia Asthma CKD (chronic kidney disease), stage III Diabetic peripheral neuropathy Foot drop, left Glaucoma History of CHF (congestive heart failure) Hx of colonic polyp Hyperlipidemia Hypertension Hypothyroidism Incarcerated umbilical hernia Insulin dependent diabetes mellitus Lumbar disc disease Osteoarthritis Proteinuria Stenosis, cervical spine Surgical History History of appendectomy History of back surgery x3 (with fusion) History of bladder surgery Bladder tack, vaginal sling History of carpal tunnel release Right History of esophagogastroduodenoscopy (EGD) History of open reduction and internal fixation (ORIF) procedure Left wrist History of postoperative nausea and vomiting x1 History of tonsillectomy History of tooth extraction History of total knee replacement Left Hx of bilateral cataract extraction Hx of cervical discectomy ROM limitations Hx of colonoscopy with polypectomy Hx of hammer toe correction R/L Hx of nasal polypectomy S/P cardiac cath ~2003- no stents Family History Sister Colorectal cancer Brother Diabetes mellitus, type 2 Sister Diabetes mellitus, type 2 Mother Diabetes mellitus, type 2 Aunt Breast cancer Father Coronary heart disease Myocardial infarction Other No family history of adverse response to anesthesia Denies family history of Ovarian cancer Prostate cancer Social History Smoking Status: Never smoker Second Hand Exposure: No; Do You Dip or Chew Tobacco: No; Tobacco Cessation Education Requested by Patient: No Hx Alcohol Use: No Hx Substance Use: No Preferred Language: Telugu Communication Ability: Effective Visual Impairment: Partially Limited Hearing Ability: Normal Studio Musician Required: No Beliefs That Will Affect Care: None marital status: Current Living Situation: Spouse current occupational status: retired How many Children do You have: 2 Other Information That Helps Us Care for You: No Feels Safe at Home: Yes Safety Concerns: Feels Safe At This Time Childhood Exposure to Second-Hand Smoke: Yes Diet: regular caffeine: Yes (soda) during the past year weight has: remained stable Dental Care, Regularly: Yes Physical Activity Frequency: Does not Exercise Physical Activity Frequency Comment: "my back kills me all the time" Seatbelt Use: always Sunscreen Use: No ("I don't go out") Do you think of yourself as: straight/heterosexual Gender Identity: Female Assistive Devices: None Review of Systems Review of Systems: See HPI above Physical Exam Physical Exam: General: no acute distress; pleasant affect; non-toxic appearing; well- nourished; cooperative; SpO2 98% on 2 LNC HEENT: normocephalic, atraumatic; no scleral icterus; PERRLA; moist mucus membrane; vision and hearing grossly intact Neck: supple; no lymphadenopathy; trachea midline Skin: warm, dry without signs of tenting; no cyanosis; no rashes, bruising, lesions, or erythema noted CV: chest wall NTP; RRR; S1/S2 normal; no murmurs/rubs/gallops; pulses intact and symmetric at radial, DP, and PT Lungs: no acute respiratory distress; symmetrical chest wall expansion; clear breath sounds across all lung ac w/o adventitious sounds; no wheezing ABD: Soft, NTP; BS present; no rebound/guarding; no distention; surgical site is well-dressed without signs of erythema, drainage, or infection MSK: no tics or fasciculations; no edema noted in the LEs b/l, nonerythematous Neuro: A&Ox3; normal mood and affect; fluent speech; no focal deficits; sensation grossly intact in the LEs b/l Trialed off supplemental oxygen: Patient's SpO2 dropped to around 90-91% on RA over the course of several minutes with minimal exertion. Results & Data Results & Data Vital Signs (Past 12 Hours) Vital Signs Temp Pulse Pulse Resp BP Pulse Ox O2 Del Method 01/13/24 14:19 36.4 C L 84 18 163/70 H 98 Nasal Cannula 01/13/24 13:25 36.4 C L 85 18 161/53 H 95 Nasal Cannula 01/13/24 12:25 36.4 C L 78 16 153/52 H 97 Nasal Cannula 01/13/24 12:07 76 16 90 Room Air 01/13/24 11:25 36.4 C L 75 16 141/62 H 92 Nasal Cannula 01/13/24 10:45 36.4 C L 77 16 139/54 L 92 Room Air 01/13/24 10:12 36.5 C 74 16 165/64 H 92 Nasal Cannula 01/13/24 10:05 36.3 C L 77 12 145/76 H 93 Nasal Cannula 01/13/24 09:55 74 12 157/63 H 93 Oxymask 01/13/24 09:45 73 12 159/95 H 94 Oxymask 01/13/24 09:35 36.1 C L 71 20 158/57 H 93 Oxymask 01/13/24 07:28 36.6 C 90 22 162/64 H 93 Room Air O2 Flow Rate 01/13/24 14:19 2 01/13/24 13:25 2 01/13/24 12:25 2 01/13/24 12:07 01/13/24 11:25 2 01/13/24 10:45 01/13/24 10:12 2 01/13/24 10:05 2 01/13/24 09:55 6 01/13/24 09:45 8 01/13/24 09:35 10 01/13/24 07:28 Laboratory Results Abnormal lab results 01/13/24 01/13/24 Range/Units 08:08 09:38 POC Glucose 132 H 130 H (70-99) mg/dl Diagnostic Findings Chest X-Ray 01/13/24 12:33 XR chest 1V portable CLINICAL HISTORY: Pt with low post-op O2 sat COMPARISON STUDY: Chest radiograph August 09, 2018. Chest CT August 10, 2018. FINDINGS: Postoperative findings within the spine are incidentally noted. There is no pneumothorax or pleural effusion. There is cardiomegaly without evidence for pulmonary edema. Possible opacity within the medial right lung base. Left lung is clear. IMPRESSION: 1. Possible opacity within the medial right lung base. This could reflect atelectasis or a small focus of pneumonia. 2. Cardiomegaly without evidence for pulmonary edema. ACT 112: Negative or not required by law. Electronically signed by: Dusty Paulino M.D. 01/13/2024 1:21 PM PG Care Time/CCT Total # of Minutes Spent Total Time Spent with Patient: Total time spent is greater than 50% in coordination of care (as documented) at patient's floor/unit and/or counseling patient: [place] [address] IN/OBS CONSULT LVL 5,80M Patient Type New Medical Decision Making High Complexity Diagnoses Incarcerated umbilical hernia K42.0 Hypoxia R09.02 Diabetes mellitus E11.9 ANTWON (acute kidney injury) N17.9 Hyperkalemia E87.5 Hyperlipidemia, unspecified hyperlipidemia type E78.5 Hyperlipidemia type: unspecified Hypertension I10 CHF (congestive heart failure) I50.9 Mild intermittent asthma without complication J45.20 Asthma complication type: uncomplicated Asthma persistence: intermittent Asthma severity: mild (6) Hyperlipidemia Hyperlipidemia type: unspecified Qualified Code(s): E78.5 - Hyperlipidemia, unspecified (9) Asthma Asthma complication type: uncomplicated Asthma persistence: intermittent Asthma severity: mild Qualified Code(s): J45.20 - Mild intermittent asthma, uncomplicated
[2024-01-13] MEDS ORDERED: DEXTROSE 50% 50 ML SYRINGE IV PRN (15:39)
[2024-01-13] MEDS ORDERED: GLUCOSE 10 TAB/TUBE PO PRN (15:39)
[2024-01-13] MEDS ORDERED: GLUCAGON FOR INJ 1 MG VIAL SQ PRN (15:39)
[2024-01-13] MEDS ORDERED: CARBOHYDRATES FOR HYPOGLYCEMIA PO PRN (15:39)
[2024-01-13] MEDS ORDERED: PHARMACY GLYCEMIC MGMT CONSULT PRN (15:39)
[2024-01-13] MEDS ORDERED: GLUCOSE 40% GEL 15 GM TUBE PO PRN (15:39)
[2024-01-13] MEDS: SODIUM CHLORIDE 0.9% 1,000 ML IV SCH ×2 (15:48→23:49)
[2024-01-13] MEDS: INSULIN ASPART PER UNIT CHARGE SC SCH (17:48)
[2024-01-13] MEDS: LANTUS PER UNIT CHARGE SC ONE (17:48)
[2024-01-13 21:52] LABS: Hematocrit (blood only) 30.1 % (37.0-47.0); Hemoglobin 9.4 g/dl (12.0-16.0); Mean Corpuscular Hemoglobin 29.1 pg (25.0-34.0); Mean Corpuscular Hgb Conc 31.2 g/dL (32.0-36.0); Mean Corpuscular Volume 93.2 fL (80.0-100.0); Mean Platelet Volume 11.1 fL (9.4-12.4); Platelet Count 269 K/uL (130-400); RDW Coefficient of Variation 13.3 % (11.5-14.5); RDW Standard Deviation 45.4 fL (36.4-46.3); Red Blood Count 3.23 M/uL (4.20-5.40); White Blood Count 11.85 K/ul (4.8-10.8)
[2024-01-13 21:57] LABS: BUN Creatinine Ratio 25.5 (10-20); Calcium 8.5 mg/dl (8.6-10.3); Creatinine Clr Calc Pharmacy 34.3 ml/min; Est GFR (African American) 30.3 ml/min; Est GFR (Non-African American) 26.2 ml/min; Potassium 6.3 mmol/L (3.5-5.1)
[2024-01-13 22:08] LABS: Basophils # (auto) 0.02 K/uL (0.00-0.20); Basophils % (auto) 0.2 %; Hypersegmented Neutrophils 1+; Immature Granulocytes # (auto) 0.06 K/uL (0.01-0.20); Immature Granulocytes % (auto) 0.5 %; Lymphocytes # (auto) 0.67 K/uL (1.20-3.40); Lymphocytes % (auto) 5.7 %; Monocytes # (auto) 0.12 K/uL (0.11-0.59); Neutrophils # (auto) 10.98 K/uL (1.40-6.50); Neutrophils % (auto) 92.6 %
[2024-01-13 22:23] LABS: Albumin Globulin Ratio 1.3 (0.9-2); Bilirubin,Total 0.3 mg/dl (0.2-1.0); Globulin 3.2 gm/dl (2.5-4.0); Total Protein 7.2 gm/dl (6.0-8.3)
[2024-01-13] MEDS: CALCIUM GLUCONATE 1,000 MG/60 ML BAG IV STA (22:31)
[2024-01-13] MEDS: INSULIN HUMAN REGULAR PER UNIT 5 UNITS in SYRINGE 4.95 ML IV ONE (22:31)
[2024-01-14] MEDS: INSULIN ASPART PER UNIT CHARGE SC SCH (00:11)
[2024-01-14 00:53] LABS: BUN Creatinine Ratio 26.9 (10-20); Calcium 8.9 mg/dl (8.6-10.3); Creatinine Clr Calc Pharmacy 36.9 ml/min; Est GFR (African American) 33.1 ml/min; Est GFR (Non-African American) 28.6 ml/min; Potassium 5.9 mmol/L (3.5-5.1)
[2024-01-14] MEDS: LACTATED RINGER'S 1,000 ML IV SCH (01:15)
[2024-01-14 06:20] LABS: Anion Gap 7 (3-11); BUN Creatinine Ratio 29.5 (10-20); Blood Urea Nitrogen 46 mg/dl (6-23); Calcium 8.9 mg/dl (8.6-10.3); Carbon Dioxide 23 mmol/L (21-32); Chloride 106 mmol/L (98-107); Creatinine Clr Calc Pharmacy 40.4 ml/min; Est GFR (Non-African American) 31.9 ml/min; Glucose 157 mg/dl (70-99(Fasting)); Sodium 136 mmol/L (136-145)
[2024-01-14 07:31] LABS: Basophils # (auto) 0.02 K/uL (0.00-0.20); Basophils % (auto) 0.1 %; Hematocrit (blood only) 32.8 % (37.0-47.0); Hemoglobin 10.4 g/dl (12.0-16.0); Immature Granulocytes % (auto) 0.6 %; Lymphocytes # (auto) 2.02 K/uL (1.20-3.40); Lymphocytes % (auto) 11.9 %; Mean Corpuscular Hemoglobin 29.5 pg (25.0-34.0); Mean Corpuscular Hgb Conc 31.7 g/dL (32.0-36.0); Mean Corpuscular Volume 93.2 fL (80.0-100.0); Monocytes # (auto) 0.49 K/uL (0.11-0.59); Monocytes % (auto) 2.9 %; Neutrophils # (auto) 14.34 K/uL (1.40-6.50); Neutrophils % (auto) 84.5 %; Platelet Count 318 K/uL (130-400); RDW Coefficient of Variation 13.4 % (11.5-14.5); RDW Standard Deviation 46.1 fL (36.4-46.3); Red Blood Count 3.52 M/uL (4.20-5.40); White Blood Count 16.97 K/ul (4.8-10.8)
[2024-01-14 07:58] LABS: Estimated Average Glucose 146 mg/dl; Hemoglobin A1C 6.7 % (4.5-5.6)
--- NOTE | 2024-01-14 08:32 | Surgery Progress Note ---
Date of Service January 14, 2024 Assessment & Plan (1) Incarcerated umbilical hernia: Plan: Patient is POD [address] Mishra Was admitted d/t low Spo2 post surgery Consulted hospitalist to assist with medical management Pt has Expected postop surgical pain Dressing CDI, gauze and tegaderm No N/V tolerating diet Currently off O2 , Denies SOB Elevation in WBC likely reactive from surgery Elevation in potassium, managed by hospitalist appreciate their assistance Patient is doing well from a surgical standpoint Admission and Anticipated Discharge Date Admission Date: January 13, 2024 Supervising Physician Co-Signing Physician Notes Doing well postoperative day 1 Has little abdominal pain She is stable for discharge from a surgical standpoint, we will await her to be cleared by medicine due to hyperkalemia and renal dysfunction She is off oxygen this morning, she is to continue her incentive spirometry and ambulating Subjective Pt resting in bed expected post surgical pain Denies SOB, CP, N/V Review of Systems Constitutional: no fever and no chills Respiratory: no dyspnea Cardiovascular: no chest pain Gastrointestinal: + abdominal pain (post surgical discomfo rt ); no nausea and no vomiting Integumentary: no rash Psychiatric: no confusion Physical Exam Physical Exam: alert oriented Constitutional: cooperative and comfortable; no acute distress Respiratory: normal respiratory effort and able to speak in complete sentences; no respiratory distress Gastrointestinal (Abdomen): Inspection/Auscultation: + abdominal surgical incision (CDI, gauze and tegaderm) Percussion/Palpation: + abdomen tender and abdomen soft Psychiatric: A+Ox3, euthymic affect Results & Data Vital Signs (Past 12 Hours) Vital Signs Temp Pulse Pulse Resp BP Pulse Ox O2 Del Method 01/14/24 06:53 122 H 01/14/24 05:58 61 01/14/24 04:30 97.9 F 73 20 149/73 H 96 Nasal Cannula 01/14/24 01:11 95 Room Air 01/13/24 23:36 98.2 F 84 20 166/61 H 98 Nasal Cannula 01/13/24 21:20 Nasal Cannula O2 Flow Rate 01/14/24 06:53 01/14/24 05:58 01/14/24 04:30 2 01/14/24 01:11 01/13/24 23:36 2 01/13/24 21:20 2 Results Complete Blood Count Results: RBC 3.52 M/uL (4.20-5.40) L 01/14/24 WBC 16.97 K/ul (4.8-10.8) H 01/14/24 Hgb 10.4 g/dl (12.0-16.0) L 01/14/24 Hct 32.8 % (37.0-47.0) L 01/14/24 Plt Count 318 K/uL (130-400) 01/14/24 Results CMP Results: Na 136 mmol/L (136-145) 01/14/24 K 5.3 mmol/L (3.5-5.1) H 01/14/24 Cl 106 mmol/L (98-107) 01/14/24 CO2 23 mmol/L (21-32) 01/14/24 Anion Gap 7 (3-11) 01/14/24 BUN 46 mg/dl (6-23) H 01/14/24 Creatinine 1.56 mg/dl (0.6-1.2) H 01/14/24 Estimated GFR ( Amer) 37.0 ml/min 01/14/24 Estimated GFR (Non-Af Amer) 31.9 ml/min 01/14/24 BUN/Creatinine Ratio 29.5 (10-20) H 01/14/24 Glu 157 mg/dl (70-99(Fasting)) H 01/14/24 Ca 8.9 mg/dl (8.6-10.3) 01/14/24 Phosphorus Level 4.3 mg/dl (2.5-4.9) 11/04/23 Total Bilirubin 0.3 mg/dl (0.2-1.0) 01/13/24 Direct Bilirubin < 0.1 mg/dl (0-0.2) 05/24/19 AST 15 U/L (13-39) 01/13/24 ALT 15 U/L (7-52) 01/13/24 Alkaline Phosphatase 56 U/L (34-104) 01/13/24 TP 7.2 gm/dl (6.0-8.3) 01/13/24 Albumin 4.0 gm/dl (3.4-5.0) 01/13/24 Globulin 3.2 gm/dl (2.5-4.0) 01/13/24 Albumin/Globulin Ratio 1.3 (0.9-2) 01/13/24 PG Care Time/CCT Total # of Minutes Spent Total Time Spent with Patient: Total time spent is greater than 50% in coordination of care (as documented) at patient's floor/unit and/or counseling patient: Coding Level of Care Code 72575 Post Operative Follow-Up Diagnoses Incarcerated umbilical hernia K42.0
[2024-01-14] MEDS: DEXTROSE 50% 50 ML SYRINGE IV STA (08:59)
[2024-01-14] MEDS: INSULIN HUMAN REGULAR PER UNIT 10 UNITS in SYRINGE 9.9 ML IV STA (08:59)
[2024-01-14] MEDS ORDERED: LOSARTAN POTASSIUM 50 MG TAB PO SCH (09:00)
[2024-01-14] MEDS: FELODIPINE 5 MG TABCR PO SCH (09:08)
[2024-01-14] MEDS: LEVOTHYROXINE SODIUM 137 MCG TABLET PO SCH (09:08)
[2024-01-14] MEDS: DULoxetine HCL 60 MG CAP PO SCH (09:08)
[2024-01-14] MEDS: LORATADINE 10 MG TAB PO SCH (09:08)
--- NOTE | 2024-01-14 14:17 | Pharmacy Report ---
Pharmacy Glycemic Short Note 2 - Date of Service January 14, 2024 - Glycemic Short BSG Results (Last 24 hours): 01/13/24 01/13/24 01/13/24 17:08 17:10 20:34 Glucose POC Glucose 378 H* 412 H* 378 H* 01/13/24 01/13/24 01/14/24 20:36 21:19 00:00 Glucose 387 H* POC Glucose 398 H* 208 H 01/14/24 01/14/24 01/14/24 00:20 04:48 05:19 Glucose 199 H 157 H POC Glucose 157 H 01/14/24 01/14/24 08:16 12:09 Glucose POC Glucose 194 H 186 H OUTPATIENT ANTIDIABETIC REGIMEN: * Lantus 84 units SQ QPM @1800 * Novolog 25 units SQ TIDM * HbA1c 6.7% (01/14/24) 6.9% (10/17/23) ASSESSMENT: * Arely is a 78 YOF admitted status post umbillical hernia repair complicated with post-anesthesia hypoxia, ANTWON, and hyperkalemia. She has a history of type 2 diabetes mellitus. Pharmacy has been consulted for glycemic management while inpatient. * Arely received 122 units of insulin yesterday (70 were basal) * Fasting BSG above goal range, basal insulin started at ~20% reduction from home dosage, will increase by 10% tonight * Still hyperkalemic this AM, received 10 units of IV regular insulin + 1 amp of D50W to treat, BSGs still above goal range * Will continue current Novolog parameters at this time, per nightshift [facility], there was concern of her BSGs correcting too quickly. Outpatient regimen suggests that she may need a slightly more aggressive bolus regimen. PLAN FOR INPATIENT GLYCEMIC CONTROL: * Hold outpatient oral diabetes medications * Basal insulin * Lantus 75 units SQ QPM @1800 * Bolus insulin * NovoLog per scale ACHS or Q6hrs while NPO * Goal Range: Low 110 mg/dL - High 140 mg/dL * Correction Factor: 12 mg/dL/unit * Nutritional / Prandial insulin per carb ratio of 1 unit per 4 grams CHO consumed
--- NOTE | 2024-01-14 14:36 | Hospitalist Progress Note ---
Date of Service January 14, 2024 Assessment & Plan (1) Incarcerated umbilical hernia: Plan: S/p open incarcerated umbilical hernia repair on 01/[address] Mishra Perioperative antibiotics, pain control, fluids, and DVT PPx per the primary team (2) Hypoxia: Plan: Secondary to atelectasis Resolved Incentive spirometry (3) Diabetes mellitus: Plan: Fingersticks much better controlled (4) ANTWON (acute kidney injury): Plan: BUN 47, creatinine 1.84 (baseline 1.24), EGFR 26.2 Avoid nephrotoxic agents for possible Hold a.m. losartan IV fluids discontinued. Patient taking p.o. intake Monitor BMP closely Ordered a.m. labs for tomorrow Creatinine trended down to 1.5 from 1.8 (5) Hyperkalemia: Plan: Most likely secondary to acute kidney injury Was treated last night Potassium down to 5.3 this morning Treated again with insulin and D50 Check repeat BMP levels in a.m. (6) Hyperlipidemia: (7) Hypertension: (8) CHF (congestive heart failure): (9) Asthma: Plan The patient should stay in the hospital overnight and her labs should be repeated tomorrow to make sure that the potassium has normalized. Hoping for improving renal function as well. Likely discharge tomorrow. Admission and Anticipated Discharge Date Admission Date: January 13, 2024 Subjective Patient feels well today. Denies chest pain or shortness of breath Review of Systems Review of Systems: All systems reviewed & are unremarkable except as noted in Subjective Physical Exam Physical Exam: General: Awake, conversant Heart: S1, S2/regular rate and rhythm, no murmur rubs or gallops Lungs: Clear to auscultation bilaterally. Normal effort Abdomen: Dressing on abdomen Extremities: No clubbing/cyanosis. No edema Behavior: Appropriate, cooperative Results & Data Results & Data Vital Signs (Past 12 Hours) Vital Signs Temp Pulse Pulse Resp BP Pulse Ox O2 Del Method 01/14/24 11:15 36.9 C 76 18 152/65 H 95 Room Air 01/14/24 10:13 102 H 01/14/24 08:28 36.7 C 76 18 151/63 H 90 Room Air 01/14/24 06:53 122 H 01/14/24 05:58 61 01/14/24 04:30 36.6 C 73 20 149/73 H 96 Nasal Cannula O2 Flow Rate 01/14/24 11:15 01/14/24 10:13 01/14/24 08:28 01/14/24 06:53 01/14/24 05:58 01/14/24 04:30 2 Laboratory Results Abnormal lab results 01/13/24 01/13/24 01/13/24 Range/Units 17:08 17:10 20:34 WBC (4.8-10.8) K/ul RBC (4.20-5.40) M/uL Hgb (12.0-16.0) g/dl Hct (37.0-47.0) % MCHC (32.0-36.0) g/dL Neut # (Auto) (1.40-6.50) K/uL Lymph # (Auto) (1.20-3.40) K/uL Sodium (136-145) mmol/L Potassium (3.5-5.1) mmol/L BUN (6-23) mg/dl Creatinine (0.6-1.2) mg/dl BUN/Creatinine Ratio (10-20) Glucose (70-99(Fasting)) mg/dl POC Glucose 378 H* 412 H* 378 H* (70-99) mg/dl Hemoglobin A1c (4.5-5.6) % Calcium (8.6-10.3) mg/dl 01/13/24 01/13/24 01/14/24 Range/Units 20:36 21:19 00:00 WBC 11.85 H (4.8-10.8) K/ul RBC 3.23 L (4.20-5.40) M/uL Hgb 9.4 L (12.0-16.0) g/dl Hct 30.1 L (37.0-47.0) % MCHC 31.2 L (32.0-36.0) g/dL Neut # (Auto) 10.98 H (1.40-6.50) K/uL Lymph # (Auto) 0.67 L (1.20-3.40) K/uL Sodium 134 L (136-145) mmol/L Potassium 6.3 H* D (3.5-5.1) mmol/L BUN 47 H (6-23) mg/dl Creatinine 1.84 H (0.6-1.2) mg/dl BUN/Creatinine Ratio 25.5 H (10-20) Glucose 387 H* (70-99(Fasting)) mg/dl POC Glucose 398 H* 208 H (70-99) mg/dl Hemoglobin A1c (4.5-5.6) % Calcium 8.5 L (8.6-10.3) mg/dl 01/14/24 01/14/24 01/14/24 Range/Units 00:20 04:48 05:19 WBC (4.8-10.8) K/ul RBC (4.20-5.40) M/uL Hgb (12.0-16.0) g/dl Hct (37.0-47.0) % MCHC (32.0-36.0) g/dL Neut # (Auto) (1.40-6.50) K/uL Lymph # (Auto) (1.20-3.40) K/uL Sodium (136-145) mmol/L Potassium 5.9 H (3.5-5.1) mmol/L BUN 46 H 46 H (6-23) mg/dl Creatinine 1.71 H 1.56 H (0.6-1.2) mg/dl BUN/Creatinine Ratio 26.9 H 29.5 H (10-20) Glucose 199 H 157 H (70-99(Fasting)) mg/dl POC Glucose 157 H (70-99) mg/dl Hemoglobin A1c (4.5-5.6) % Calcium (8.6-10.3) mg/dl 01/14/24 01/14/24 01/14/24 Range/Units 07:01 08:16 12:09 WBC 16.97 H (4.8-10.8) K/ul RBC 3.52 L (4.20-5.40) M/uL Hgb 10.4 L (12.0-16.0) g/dl Hct 32.8 L (37.0-47.0) % MCHC 31.7 L (32.0-36.0) g/dL Neut # (Auto) 14.34 H (1.40-6.50) K/uL Lymph # (Auto) (1.20-3.40) K/uL Sodium (136-145) mmol/L Potassium 5.3 H (3.5-5.1) mmol/L BUN (6-23) mg/dl Creatinine (0.6-1.2) mg/dl BUN/Creatinine Ratio (10-20) Glucose (70-99(Fasting)) mg/dl POC Glucose 194 H 186 H (70-99) mg/dl Hemoglobin A1c 6.7 H (4.5-5.6) % Calcium (8.6-10.3) mg/dl PG Care Time/CCT Total # of Minutes Spent Total Time Spent with Patient: Total time spent is greater than 50% in coordination of care (as documented) at patient's floor/unit and/or counseling patient: Coding Level of Care Code 31719 SUB INP/OBS CARE 2MIN Diagnoses Incarcerated umbilical hernia K42.0 Hypoxia R09.02 Diabetes mellitus E11.9 ANTWON (acute kidney injury) N17.9 Hyperkalemia E87.5 Hyperlipidemia, unspecified hyperlipidemia type E78.5 Hyperlipidemia type: unspecified Hypertension I10 CHF (congestive heart failure) I50.9 Mild intermittent asthma without complication J45.20 Asthma severity: mild Asthma persistence: intermittent Asthma complication type: uncomplicated (6) Hyperlipidemia Hyperlipidemia type: unspecified Qualified Code(s): E78.5 - Hyperlipidemia, unspecified (9) Asthma Asthma severity: mild Asthma persistence: intermittent Asthma complication type: uncomplicated Qualified Code(s): J45.20 - Mild intermittent asthma, uncomplicated
[2024-01-14] MEDS: LANTUS PER UNIT CHARGE SC SCH (17:49)
[2024-01-14] MEDS: ACETAMINOPHEN 325 MG TAB PO PRN (19:31)
[2024-01-15 07:27] LABS: BUN Creatinine Ratio 35.8 (10-20); Calcium 8.9 mg/dl (8.6-10.3); Creatinine Clr Calc Pharmacy 41.3 ml/min; Est GFR (African American) 38.5 ml/min; Est GFR (Non-African American) 33.2 ml/min; Potassium 5.4 mmol/L (3.5-5.1)
[2024-01-15] MEDS: DEXTROSE 50% 50 ML SYRINGE IV STA (09:51)
[2024-01-15] MEDS: INSULIN HUMAN REGULAR PER UNIT 10 UNITS in SYRINGE 9.9 ML IV STA (09:52)
[2024-01-15] MEDS: PATIROMER CALCIUM SORBITEX 8.4 GM PACK PO STA (10:12)
--- NOTE | 2024-01-15 11:44 | Surgery Progress Note ---
Date of Service January 15, 2024 Assessment & Plan (1) Incarcerated umbilical hernia: Plan: Patient is POD [address] Mishra Was admitted d/t low Spo2 post surgery Consulted hospitalist to assist with medical management Pt has Expected postop surgical pain Dressing CDI, gauze and tegaderm No N/V tolerating diet Elevation in potassium, managed by hospitalist appreciate their assistance Patient is doing well from a surgical standpoint Potassium this AM 5.4 spoke to hospitalist they will repeat potassium this afternoon and if stable poss. d/c Pt will need f/u with Dr. Mishra in 2 weeks o/p and Nephrology a few days after d/c (2) Hyperkalemia: Admission and Anticipated Discharge Date Admission Date: January 13, 2024 Subjective Patient doing well no complaints Review of Systems Constitutional: no fever and no chills Respiratory: no dyspnea Cardiovascular: no chest pain Gastrointestinal: + abdominal pain (post surgical discomfo rt ); no nausea and no vomiting Integumentary: no rash Psychiatric: no confusion Physical Exam Physical Exam: alert oriented Constitutional: cooperative and comfortable; no acute distress Respiratory: normal respiratory effort and able to speak in complete sentences; no respiratory distress Gastrointestinal (Abdomen): Inspection/Auscultation: + abdominal surgical incision (CDI, gauze and tegaderm) Percussion/Palpation: + abdomen tender and abdomen soft Psychiatric: A+Ox3, euthymic affect Results & Data Vital Signs (Past 12 Hours) Vital Signs Temp Pulse Pulse Resp BP Pulse Ox O2 Del Method 01/15/24 07:32 74 01/15/24 07:28 98.2 F 76 18 146/63 H 94 Room Air 01/15/24 04:20 98.1 F 75 20 137/68 95 Room Air 01/15/24 01:25 98.2 F 69 20 150/68 H 93 Room Air Results BMP Results: Sodium 140 mmol/L (136-145) 01/15/24 Potassium 5.4 mmol/L (3.5-5.1) H 01/15/24 Chloride 108 mmol/L (98-107) H 01/15/24 Carbon Dioxide 25 mmol/L (21-32) 01/15/24 Anion Gap 7 (3-11) 01/15/24 BUN 54 mg/dl (6-23) H 01/15/24 Creatinine 1.51 mg/dl (0.6-1.2) H 01/15/24 Glucose 106 mg/dl (70-99(Fasting)) H 01/15/24 PG Care Time/CCT Total # of Minutes Spent Total Time Spent with Patient: Total time spent is greater than 50% in coordination of care (as documented) at patient's floor/unit and/or counseling patient: Coding Level of Care Code 83192 Post Operative Follow-Up Diagnoses Incarcerated umbilical hernia K42.0 Hyperkalemia E87.5
[2024-01-15] MEDS ORDERED: LANTUS PER UNIT CHARGE SC SCH (18:00)
--- NOTE | 2024-01-16 05:35 | Electrocardiogram Report ---
Test Reason : Blood Pressure : / mmHG Vent. Rate : 085 BPM Atrial Rate : 085 BPM P-R Int : 206 ms QRS Dur : 090 ms QT Int : 380 ms P-R-T Axes : 064 075 063 degrees QTc Int : 452 ms Normal sinus rhythm Increased R/S ratio in V1, consider early transition or posterior infarct Abnormal ECG When compared with ECG of 30-JUN-2018 14:36, No significant change was found Confirmed by Jefferson Holcomb ([id number] on 01/16/2024 5:35:38 AM Referred By: Yovany Mishra Confirmed By:Jefferson Holcomb
== END 2024-01-15 14:52 | disposition home or self-care (01) ==
LOC: 3N 06:51 → ASU 06:51 → 2N 23:25